=== PATIENT | female | born 1970 | race Caucasian/White ===

== ENCOUNTER 2019-02-15 07:48 | Inpatient (IN) | payer BC, OTHER ==
--- NOTE | 2019-02-15 08:43 | PDOC ---
History of Present Illness - General Chief Complaint: Pain, Acute Stated Complaint: NECK PAIN/RIB CAGE PAIN Time Seen by Provider: 02/15/19 08:09 Past History - Past Medical History Allergies/Adverse Reactions: Allergies Allergy/AdvReac Type Severity Reaction Status Date / Time No Known Allergies Allergy Verified 02/15/19 08:02 Home Medications: Ambulatory Orders NK [No Known Home Medication] 02/15/19 CVA: No COPD: No - Surgical History Cardiac Surgery: No GI Surgery: No - Immunization History Immunization Up to Date: No - Psycho Social/Smoking Cessation Hx Smoking History: Never smoked Have you smoked in the past 12 months: No Information on smoking cessation initiated: No Hx Alcohol Use: No Drug/Substance Use Hx: No *Physical Exam - Vital Signs Last Vital Signs Temp Pulse Resp BP Pulse Ox 98.1 F 94 H 16 114/74 98 02/15/19 07:59 02/15/19 07:59 02/15/19 07:59 02/15/19 07:59 02/15/19 07:59 ED Treatment Course - LABORATORY CBC & Chemistry Diagram: 02/15/19 08:55 02/15/19 08:55 Medical Decision Making - Medical Decision Making 02/15/19 08:54 HPI: 48yo F no PMH on OCPs presents from home with atraumatic L anterolateral rib/ chest/lung and L neck pain. pleuritic, worse with lying flat or exertion or deep breath/cough/yawn, associated with SOB, acute onset at rest while watching TV 02/09/18 PM, shooting type, constant, worsening, unimproved with advil (last took 4 advils at 0530 today). Of note, recent URI/cold (cough, rhinorrhea, congestion) resolved 1.5 weeks ago. LMP 01/19/19, irregular. Denies hx DVT/PE, hemoptysis, recent trauma/surgery/travel, immobilization, calf pain, leg swelling, fever, chills, fatigue, headache, dizziness, numbness/tingling, weakness, vision changes, cough, palpitations, abdominal pain, blood in stool, diarrhea, constipation, nausea, vomiting, dysuria, hematuria, confusion. ROS: Constitutional: Negative for chills, fever, fatigue, diaphoresis. HENT: Negative for sore throat, rhinorrhea, congestion. Eyes: Negative for visual disturbance. Respiratory: Positive for shortness of breath and L chest/rib/lung pain. Negative for cough, and wheezing. Cardiovascular: Positive for L chest/rib/lung pain. Negative for palpitations, and leg swelling. Gastrointestinal: Negative for abdominal pain, blood in stool, constipation, diarrhea, nausea, and vomiting. Genitourinary: Negative for dysuria, flank pain, and hematuria. Musculoskeletal: Positive for L-sided neck pain. Negative for myalgias, back pain. Skin: Negative for rash. Neurological: Negative for light-headedness, dizziness, vertigo, syncope, weakness, numbness and headaches. Psychiatric/Behavioral: Negative for behavioral problems and confusion. PE: Gen: Alert, NAD, comfortable-appearing. HEENT: PERRL, EOMI, MMM, NCAT. No conjunctival pallor. Sclera are non-icteric. Oropharynx is clear. CV: Regular rate and rhythm. No murmurs, rubs, or gallops. +point TTP L anterolateral rib just inferior to L breast. PULM: No resp distress. CTAB, no wheezes, rales, or rhonchi. ABD: soft, NT/ND, no rebound tenderness or guarding, no CVA tenderness. BACK: No TTP of c/t/l-spine. No step-offs or deformities. MSK: No bony deformities. 2+ pulses in all extremities. NEURO: AAOx3. PERRL. No gross CN deficits. Strength and sensation grossly intact throughout. EXTREMITIES: No cyanosis. No clubbing. No edema. No calf tenderness. PSYCH: Normal mood and thought pattern. SKIN: Warm and dry. Normal capillary refill. No rashes. No jaundice. MDM: 48yo F no PMH on OCPs presents from home with atraumatic L anterolateral rib/ chest/lung and L neck pain. pleuritic, worse with lying flat or exertion or deep breath/cough/yawn, associated with SOB, acute onset at rest while watching TV 02/09/18 PM, shooting type, constant, worsening, unimproved with advil (last took 4 advils at 0530 today). Of note, recent URI/cold (cough, rhinorrhea, congestion) resolved 1.5 weeks ago. Ddx: PE (OCP use, no other RFs), killian/myocarditis, PNA, ACS/ID (no RFs), rib fx (no trauma), costochondritis, anemia, metabolic derangement -EKG reviewed: NSR, 88bpm, normal intervals, normal axis, no TWIs, no ST elevations or depressions -CXR -CBC,CMP,D-dimer,Mg,Phos,HCG -Tylenol for pain -Dispo: pending w/u 02/15/19 10:45 CXR reviewed: L base atelectasis or infiltrate with fluid. Intact ribs. Correlation recommended. Follow-up imaging needed. Labs reviewed. CTPE for elevated d-dimer 02/15/19 12:01 CTPE positive for b/l PEs, b/l lower lobes, subsegmental. -Coags -Lovenox 70mg BID (1mg/kg) -duplex BLEs -Admit 02/15/19 12:[address] Bellamy, admitting team. Discharge - Discharge Information Problems reviewed: Yes Clinical Impression/Diagnosis: Pulmonary embolism, bilateral Condition: Stable - Admission Yes - Follow up/Referral Referrals: ON STAFF,NOT [Primary Care Provider] - - Patient Discharge Instructions - Post Discharge Activity
[2019-02-15] MEDS ORDERED: ACETAMINOPHEN 1000 MG/100 ML VIAL (NON FORMULARY) IVPB ONE (08:52)
[2019-02-15] MEDS ORDERED: LIDOCAINE 5% TOPICAL PATCH TP ONE (08:54)
[2019-02-15] MEDS ORDERED: ACETAMINOPHEN INJECTION 100 ML IVPB ONE (08:58)
[2019-02-15] MEDS ORDERED: LIDOCAINE 5% TOPICAL PATCH ONE (08:58)
[2019-02-15 09:27] LABS: BASO % 0.7 % (0-2.0); EOS % 0.8 % (0-4.5); HEMATOCRIT 29.1 % (32.4-45.2); HEMOGLOBIN 9.4 GM/dL (10.7-15.3); LYMPH % 8.1 % (8-40); MCH 26.8 pg (25.7-33.7); MCHC 32.4 g/dl (32.0-36.0); MEAN CELL VOLUME 82.9 fl (80-96); MEAN PLT VOLUME 8.7 fl (7.5-11.1); NEUT % 83.4 % (42.8-82.8); PLATELET COUNT 391 K/MM3 (134-434); RBC 3.52 M/mm3 (3.60-5.2); RDW 15.4 % (11.6-15.6); WHITE BLOOD COUNT 9.4 K/mm3 (4.0-10.0)
[2019-02-15 09:55] LABS: ALBUMIN 2.8 g/dl (3.4-5.0); BILIRUBIN,TOTAL 0.2 mg/dL (0.2-1); CALCIUM 8.6 mg/dL (8.5-10.1); CREATININE 0.7 mg/dL (0.55-1.3); MAGNESIUM 2.1 mg/dL (1.8-2.4); N-TERMINAL BNP 34.7 pg/ml (5-125); PHOSPHOROUS 2.5 mg/dL (2.5-4.9); POTASSIUM 4.3 mmol/L (3.5-5.1); TOT PROT 6.9 g/dl (6.4-8.2)
[2019-02-15] MEDS ORDERED: ENOXAPARIN NA (PORCINE) 80 MG/0.8 ML DISP.SYRIN SQ ONE (12:29)
[2019-02-15] MEDS ORDERED: ENOXAPARIN NA (PORCINE) 60 MG/0.6 ML DISP.SYRIN SQ SCH (12:30)
[2019-02-15] MEDS: ENOXAPARIN NA (PORCINE) 60 MG/0.6 ML DISP.SYRIN SQ SCH ×2 (12:42→21:25)
[2019-02-15 12:45] LABS: INR 1.04 (0.83-1.09); PROTHROMBIN TIME (PATIENT) 12.3 SEC (9.7-13.0)
[2019-02-15 12:47] LABS: ACTIVATED PTT 25.8 SECONDS (25.2-36.5)
--- NOTE | 2019-02-15 15:08 | EKG ---
Test Reason : Blood Pressure : / mmHG Vent. Rate : 088 BPM Atrial Rate : 088 BPM P-R Int : 138 ms QRS Dur : 092 ms QT Int : 370 ms P-R-T Axes : 048 060 046 degrees QTc Int : 447 ms NORMAL SINUS RHYTHM NORMAL ECG NO PREVIOUS ECGS AVAILABLE Confirmed by ARMANDO DOE MD ([id number]) on 02/15/2019 3:07:52 PM Referred By: Confirmed By:ARMANDO DOE MD
[2019-02-15 15:22] LABS: BASO % 0.7 % (0-2.0); HEMATOCRIT 30.1 % (32.4-45.2); HEMOGLOBIN 9.5 GM/dL (10.7-15.3); LYMPH % 10.6 % (8-40); MCH 26.6 pg (25.7-33.7); MCHC 31.7 g/dl (32.0-36.0); MEAN CELL VOLUME 83.9 fl (80-96); MONO % 4.8 % (3.8-10.2); NEUT % 82.9 % (42.8-82.8); PLATELET COUNT 392 K/MM3 (134-434); RBC 3.59 M/mm3 (3.60-5.2); RDW 15.4 % (11.6-15.6)
[2019-02-15] MEDS ORDERED: ACETAMINOPHEN 325 MG TABLET (FP) ONE (15:55)
[2019-02-15] MEDS: ACETAMINOPHEN 325 MG TABLET (FP) PO PRN ×2 (15:59→22:39)
--- NOTE | 2019-02-15 18:18 | HP ---
CHIEF COMPLAINT: Chest pain on the left side more in the right side small amount. PCP: No medical doctor but has a business development assistant HISTORY OF PRESENT ILLNESS: This is a 48 years old female who came to the ER with complaining of chest pain on the left side more and the right side slightly less is been going on for few days pain is increased when she lie flat or exertion or deep breath coughing and yawning. It is also associated with the shortness of breath and also when she do some any extra activity pain has been worsened by any activity which she does including coughing or worsening by the scooping over hour. Pain is pretty sharp and she denies any other symptom. For the last 5 years she has been having regular. And her business development assistant has started her on control pill which she is taking it. There is no family history of any blood clots in the family. Review of system is negative for any nausea vomiting blurry vision stroke or palpitation abdominal pain stool or diarrhea or history of stroke in the past. ER course was notable for: Positive for pulmonary embolism in the lungs on the CT angios and negative for DVT in the legs (1) (2) (3) Recent Travel: PAST MEDICAL HISTORY: No past medical history PAST SURGICAL HISTORY: No past surgical history Social History: Smoking: Any smoking alcohol or drug use Alcohol: Drugs: Allergies No Known Allergies Allergy (Verified 02/15/19 08:02) HOME MEDICATIONS: Home Medications Medication Instructions Recorded NK [No Known Home Medication] 02/15/19 REVIEW OF SYSTEMS Constitutional: Negative for chills, fever, fatigue, diaphoresis. HENT: Negative for sore throat, rhinorrhea, congestion. Eyes: Negative for visual disturbance. Respiratory: Positive for shortness of breath and L chest/rib/lung pain. Negative for cough, and wheezing. Cardiovascular: Positive for L chest/rib/lung pain. Negative for palpitations, and leg swelling. Gastrointestinal: Negative for abdominal pain, blood in stool, constipation, diarrhea, nausea, and vomiting. Genitourinary: Negative for dysuria, flank pain, and hematuria. Musculoskeletal: Positive for L-sided neck pain. Negative for myalgias, back pain. Skin: Negative for rash. Neurological: Negative for light-headedness, dizziness, vertigo, syncope, weakness, numbness and headaches. Psychiatric/Behavioral: Negative for behavioral problems and confusion. PHYSICAL EXAMINATION Vital Signs - 24 hr 02/15/19 02/15/19 02/15/19 07:59 09:06 12:31 Temperature 98.1 F Pulse Rate 94 H Pulse Rate [ 84 Apical] Respiratory 16 18 Rate Blood Pressure 114/74 Blood Pressure 115/79 [Right Arm] O2 Sat by Pulse 98 98 99 Oximetry (%) 02/15/19 02/15/19 13:32 17:07 Temperature Pulse Rate Pulse Rate [ 81 Apical] Respiratory 18 Rate Blood Pressure Blood Pressure 128/77 [Right Arm] O2 Sat by Pulse 99 98 Oximetry (%) GENERAL: Awake, alert, and fully oriented, in no acute distress. HEAD: Normal with no signs of trauma. EYES: Pupils equal, round and reactive to light, extraocular movements intact, sclera anicteric, conjunctiva clear. No lid lag. EARS, NOSE, THROAT: Ears normal, nares patent, oropharynx clear without exudates. Moist mucous membranes. NECK: Normal range of motion, supple without lymphadenopathy, JVD, or masses. LUNGS: Breath sounds equal, clear to auscultation bilaterally. No wheezes, and no crackles. No accessory muscle use. HEART: Regular rate and rhythm, normal S1 and S2 without murmur, rub or gallop. ABDOMEN: Soft, nontender, not distended, normoactive bowel sounds, no guarding, no rebound, no masses. No hepatomegaly or splenomegaly. MUSCULOSKELETAL: Normal range of motion at all joints. No bony deformities or tenderness. No CVA tenderness. UPPER EXTREMITIES: 2+ pulses, warm, well-perfused. No cyanosis. No clubbing. No peripheral edema. LOWER EXTREMITIES: 2+ pulses, warm, well-perfused. No calf tenderness. No peripheral edema. NEUROLOGICAL: Cranial nerves II-XII intact. Normal speech. Normal gait. PSYCHIATRIC: Cooperative. Good eye contact. Appropriate mood and affect. SKIN: Warm, dry, normal turgor, no rashes or lesions noted, normal capillary refill. Laboratory Results - last 24 hr 02/15/19 02/15/19 02/15/19 08:55 08:55 08:55 WBC 9.4 RBC 3.52 L Hgb 9.4 L Hct 29.1 L MCV 82.9 MCH 26.8 MCHC 32.4 RDW 15.4 Plt Count 391 MPV 8.7 Absolute Neuts (auto) 7.8 Neutrophils % 83.4 H Lymphocytes % 8.1 Monocytes % 7.0 Eosinophils % 0.8 Basophils % 0.7 Nucleated RBC % 0 PT with INR INR PTT (Actin FS) D-Dimer 4302 H Sodium Potassium Chloride Carbon Dioxide Anion Gap BUN Creatinine Est GFR (CKD-EPI)AfAm Est GFR (CKD-EPI)NonAf Random Glucose Calcium Phosphorus Magnesium Total Bilirubin AST ALT Alkaline Phosphatase Creatine Kinase 30 Troponin I < 0.02 B-Natriuretic Peptide Total Protein Albumin Vitamin B12 Serum Folate Beta HCG, Quant 02/15/19 02/15/19 02/15/19 08:55 08:55 14:38 WBC 10.0 RBC 3.59 L Hgb 9.5 L Hct 30.1 L MCV 83.9 MCH 26.6 MCHC 31.7 L RDW 15.4 Plt Count 392 MPV 9.0 Absolute Neuts (auto) 8.3 H Neutrophils % 82.9 H Lymphocytes % 10.6 D Monocytes % 4.8 Eosinophils % 1.0 Basophils % 0.7 Nucleated RBC % 0 PT with INR 12.30 INR 1.04 PTT (Actin FS) 25.8 D-Dimer Sodium 137 Potassium 4.3 Chloride 105 Carbon Dioxide 25 Anion Gap 7 L BUN 12.0 Creatinine 0.7 Est GFR (CKD-EPI)AfAm 117.09 Est GFR (CKD-EPI)NonAf 101.02 Random Glucose 79 Calcium 8.6 Phosphorus 2.5 Magnesium 2.1 Total Bilirubin 0.2 AST 13 L ALT 24 Alkaline Phosphatase 52 Creatine Kinase Troponin I B-Natriuretic Peptide 34.7 Total Protein 6.9 Albumin 2.8 L Vitamin B12 Serum Folate Beta HCG, Quant 1.4 02/15/19 15:54 WBC RBC Hgb Hct MCV MCH MCHC RDW Plt Count MPV Absolute Neuts (auto) Neutrophils % Lymphocytes % Monocytes % Eosinophils % Basophils % Nucleated RBC % PT with INR INR PTT (Actin FS) D-Dimer Sodium Potassium Chloride Carbon Dioxide Anion Gap BUN Creatinine Est GFR (CKD-EPI)AfAm Est GFR (CKD-EPI)NonAf Random Glucose Calcium Phosphorus Magnesium Total Bilirubin AST ALT Alkaline Phosphatase Creatine Kinase Troponin I B-Natriuretic Peptide Total Protein Albumin Vitamin B12 286 Serum Folate 7 Beta HCG, Quant Her EKG shows she is normal sinus rhythm with 88 bpm and normal axis no ST-T wave depression. Chest x-ray shows possible atelectasis or fluid that leads to chest CAT scan and the results as CT chest shows. Bilateral acute pulmonary emboli small left pleural effusion with small left lower lobe consolidation ASSESSMENT/PLAN: 48 years old female with no past medical history admitted for acute pulmonary embolism. Her leg sonogram is negative for any DVT. So she is 69 kg at this time so we will start her on Lovenox 70 mg subcu twice daily. Will watch her on telemetry and will get an echocardiogram to look for any heart rate strain on her. We will give her 2 L oxygen and She is also have anemia which is normocytic and she has denies any sign of bleeding so we will do basic anemia work-up which is stool guaiac B12 folic acid and iron studies and will follow she has no old CBC available in the hospital and she does not remember her hemoglobin level in the past. Tomorrow she can go on oral anticoagulant. Visit type - Emergency Visit Emergency Visit: Yes ED Registration Date: 02/15/19 Care time: The patient presented to the Emergency Department on the above date and was hospitalized for further evaluation of their emergent condition. - New Patient This patient is new to me today: Yes Date on this admission: 02/15/19 - Critical Care Critical Care patient: No
[2019-02-15 18:31] VITALS: BMI 24.2
[2019-02-16] MEDS: ENOXAPARIN NA (PORCINE) 60 MG/0.6 ML DISP.SYRIN SQ SCH ×2 (10:29→21:04)
--- NOTE | 2019-02-16 13:29 | PN ---
Progress Note, Physician Chief Complaint: sob History of Present Illness: seen and examined at bedside. feeling much better. less AMADOR, less plueritic cp - Current Medication List Current Medications: Active Medications Acetaminophen (Tylenol -) 650 mg PO Q6H PRN PRN Reason: PAIN Last Admin: 02/15/19 22:39 Dose: 650 mg Enoxaparin Sodium (Lovenox -) 70 mg SQ BID HARRIETT Last Admin: 02/16/19 10:29 Dose: 70 mg - Objective Vital Signs: Vital Signs Temperature 97.9 F 02/16/19 13:06 Pulse Rate 90 02/16/19 13:06 Respiratory Rate 18 02/16/19 13:06 Blood Pressure 129/76 02/16/19 13:06 O2 Sat by Pulse Oximetry (%) 100 02/16/19 09:00 Constitutional: Yes: Well Nourished, No Distress, Calm HENT: Yes: WNL, Atraumatic, Normocephalic Neck: Yes: WNL, Supple, Trachea Midline Cardiovascular: Yes: WNL, Regular Rate and Rhythm Respiratory: Yes: WNL, Regular, CTA Bilaterally Gastrointestinal: Yes: WNL, Normal Bowel Sounds, Soft Musculoskeletal: Yes: WNL Extremities: Yes: WNL Edema: No Labs: CBC, BMP 02/15/19 14:38 02/15/19 08:55 INR, PTT INR 1.04 (0.83-1.09) 02/15/19 08:55 Problem List - Problems (1) Pulmonary embolism, bilateral Code(s): I26.99 - OTHER PULMONARY EMBOLISM WITHOUT ACUTE COR PULMONALE Assessment/Plan ASSESSMENT/PLAN: 48 year old female on OCP with no past medical history admitted for acute pulmonary embolism. 1) Acute bilateral PE -likely due to OCP use -no DVT -on levonox BID -2decho in AM -transition to PO AC in AM, eliquis -needs fu chest imaging, lll consolidation seen no clinical s/s pna
[2019-02-16 16:13] LABS: IRON SERUM 12 ug/dL (50-175); TOTAL IRON BINDING CAPACITY 293 ug/dL (250-450)
[2019-02-16] MEDS: ACETAMINOPHEN 325 MG TABLET (FP) PO PRN (21:05)
[2019-02-17 06:10] VITALS: TEMP 98.2
--- NOTE | 2019-02-17 09:44 | PN ---
Physical Exam: SUBJECTIVE: Patient seen and examined. She complains of left back pain when she coughs and takes a deep breath. OBJECTIVE: Vital Signs Period Temp Pulse Resp BP Sys/Bui Pulse Ox Last 24 Hr 97.6 F-98.6 F 69-102 16-18 111-133/66-84 98 GENERAL: The patient is awake, alert, and fully oriented, in no acute distress. HEAD: Normal with no signs of trauma. EYES: PERRL, extraocular movements intact, sclera anicteric, conjunctiva clear. No ptosis. ENT: Ears normal, nares patent, oropharynx clear without exudates, moist mucous membranes. NECK: Trachea midline, full range of motion, supple. LUNGS: Breath sounds equal, clear to auscultation bilaterally, no wheezes, no crackles, no accessory muscle use. HEART: Regular rate and rhythm, S1, S2 without murmur, rub or gallop. ABDOMEN: Soft, nontender, nondistended, normoactive bowel sounds, no guarding, no rebound, no hepatosplenomegaly, no masses. EXTREMITIES: 2+ pulses, warm, well-perfused, no edema. NEUROLOGICAL: Cranial nerves II through XII grossly intact. Normal speech, gait not observed. PSYCH: Normal mood, normal affect. SKIN: Warm, dry, normal turgor, no rashes or lesions noted Laboratory Results - last 24 hr 02/16/19 02/16/19 15:41 15:41 Iron 12 L TIBC 293 Iron Saturation 4 L Unsaturated IBC 281 H Ferritin 36.7 Active Medications Generic Name Dose Route Start Last Admin Trade Name Freq PRN Reason Stop Dose Admin Acetaminophen 650 mg 02/15/19 13:08 02/16/19 21:05 Tylenol - PO 650 mg Q6H PRN Administration PAIN Enoxaparin Sodium 70 mg 02/15/19 12:30 02/16/19 21:04 Lovenox - SQ 70 mg BID HARRIETT Administration ASSESSMENT/PLAN:
[2019-02-17] MEDS: ENOXAPARIN NA (PORCINE) 60 MG/0.6 ML DISP.SYRIN SQ SCH (09:53)
--- NOTE | 2019-02-17 13:58 | CON.PULM ---
Consult Consult Specialty:: PULMONARY Referred by:: Dr Martinez Reason for Consultation:: PE - History of Present Illness Chief Complaint: back pain History of Present Illness: 48yo female with h/o uterine fibroids on oral contraceptives who was admitted with worsening left sided back pain. Reports sharp in nature, worse with deep inspiration and coughing. No fevers, chills or sweats. Found to have bilateral segmental pulmonary emboli on CTA chest. No personal or family history of VTE. 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 No recent leg pain/swelling/ trauma. She is a never smoker. Started taking the OCP about 6 months ago. She does report history of a miscarriage. LE dopplers negative for DVT. Family history positive for colon ca on both sides, she has had recent negative colonoscopy. - History Source History Provided By: Patient, Medical Record - Past Medical History Reproductive: Yes: Fibroids ...LMP: 01/19/19 ...: No - Alcohol/Substance Use Hx Alcohol Use: No - Smoking History Smoking history: Never smoked Have you smoked in the past 12 months: No Home Medications - Allergies Allergies/Adverse Reactions: Allergies Allergy/AdvReac Type Severity Reaction Status Date / Time No Known Allergies Allergy Verified 02/15/19 08:02 - Home Medications Home Medications: Ambulatory Orders NK [No Known Home Medication] 02/15/19 Review of Systems - Review of Systems Constitutional: denies: Chills, Fever, Night Sweats, Weakness Eyes: denies: Recent Change in Vision HENT: denies: Nasal Congestion, Throat Pain Neck: denies: Stiffness, Tenderness Cardiovascular: reports: Shortness of Breath. denies: Chest Pain Respiratory: denies: Cough, Hemoptysis, Wheezing Gastrointestinal: denies: Abdominal Pain, Nausea, Vomiting Genitourinary: denies: Dysuria, Hematuria Musculoskeletal: reports: Back Pain Neurological: denies: Dizziness, Headache Endocrine: denies: Unexplained Weight Loss Physical Exam Vital Sings: Vital Signs Temperature 98.2 F 02/17/19 09:50 Pulse Rate 94 H 02/17/19 09:50 Respiratory Rate 18 02/17/19 09:50 Blood Pressure 119/74 02/17/19 09:50 O2 Sat by Pulse Oximetry (%) 98 02/17/19 09:00 Constitutional: Yes: Calm Eyes: Yes: Conjunctiva Clear, EOM Intact HENT: Yes: Atraumatic, Normocephalic Neck: Yes: Supple, Trachea Midline Cardiovascular: Yes: Regular Rate and Rhythm Respiratory: Yes: Diminished (decreased breath sounds at the bases) ...Clubbing: No Gastrointestinal: Yes: Normal Bowel Sounds, Soft. No: Tenderness Edema: No Labs: CBC, BMP 02/15/19 14:38 02/15/19 08:55 Imaging - Results Chest X-ray: Report Reviewed, Image Reviewed Cat Scan: Report Reviewed, Image Reviewed (bilateral segmental PE, left basilar atelectasis, effusion) Problem List - Problems (1) Pulmonary embolism, bilateral Code(s): I26.99 - OTHER PULMONARY EMBOLISM WITHOUT ACUTE COR PULMONALE Assessment/Plan Acute Bilateral Pulmonary Emboli Left Atelectasis/Pleural Effusion Uterine Fibroids - continue anticoagulation - echocardiogram - if echocardiogram without evidence of right heart strain, can start eliquis 10mg BID x 7 days then 5mg BID - would anticoagulate for at least 6 months - CXR in 6-8 weeks to ensure resolution of effusion - age appropriate cancer screening as outpt Thank you for this consult Anthony Bishop MD
[2019-02-17 14:05] LABS: BASO % 0.8 % (0-2.0); EOS % 1.5 % (0-4.5); HEMATOCRIT 31.7 % (32.4-45.2); HEMOGLOBIN 10.3 GM/dL (10.7-15.3); LYMPH % 12.6 % (8-40); MCHC 32.6 g/dl (32.0-36.0); MEAN CELL VOLUME 82.9 fl (80-96); MEAN PLT VOLUME 8.5 fl (7.5-11.1); MONO % 5.3 % (3.8-10.2); NEUT % 79.8 % (42.8-82.8); PLATELET COUNT 442 K/MM3 (134-434); RBC 3.83 M/mm3 (3.60-5.2); RDW 15.1 % (11.6-15.6); WHITE BLOOD COUNT 8.7 K/mm3 (4.0-10.0)
[2019-02-17 14:06] VITALS: BP 121/74; PULSE 90
--- NOTE | 2019-02-17 15:26 | ECHO ---
Name: EVA GIRALDO Exam:Adult Echocardiogram Study Date: 02/17/2019 12:11 PM Age: 48 yrs Height: 65 in Weight: 145 lb BSA: 1.7 m2 MMode/2D Measurements & Calculations IVSd: 0.72 cm Ao root diam: 2.8 cm LVIDd: 4.3 cm LA dimension: 2.7 cm LVIDs: 2.9 cm LVPWd: 0.99 cm LVPWs: 1.3 cm EDV(Teich): 82.8 ml ESV(Teich): 31.1 ml LVOT diam: 1.7 cm RV S Orion: 13.8 cm/sec Doppler Measurements & Calculations MV E max orion: 62.7 cm/sec Ao V2 max: 139.8 cm/sec MV A max orion: 76.0 cm/sec Ao max P.8 mmHg MV E/A: 0.82 MV dec time: 0.13 sec SCARLET(V,D): 1.6 cm2 LV V1 max P.7 mmHg TR max orion: 214.5 cm/sec LV V1 max: 95.8 cm/sec TR max P.0 mmHg PA V2 max: 103.2 cm/sec Med Peak E' Orion: 8.5 cm/sec PA max P.3 mmHg Med E/e': 7.4 Lat Peak E' Orion: 12.0 cm/sec Lat E/e': 5.2 Procedure A complete two-dimensional transthoracic echocardiogram was performed (2D, M-mode, Doppler and color flow Doppler). Left Ventricle The left ventricle is normal in size. Left ventricular systolic function is normal. Ejection Fraction = 60- 65%. No regional wall motion abnormalities noted. Right Ventricle The right ventricle is normal size. The right ventricular systolic function is normal. Atria The left atrial size is normal. Right atrial size is normal. Mitral Valve There is mild mitral valve thickening. There is trace mitral regurgitation. Tricuspid Valve The tricuspid valve is normal in structure and function. There is mild tricuspid regurgitation. Pulmo nary artery systolic pressure is at least 29 mmHg if RA pressure is assumed 3 mmHg. Aortic Valve There is mild aortic sclerosis.;. No aortic regurgitation is present. Pulmonic Valve The pulmonic valve is not well visualized. Great Vessels The aortic root is normal size. Pericardium/Pleura There is no pericardial effusion. Interpretation Summary The left ventricle is normal in size. Left ventricular systolic function is normal. No regional wall motion abnormalities noted. Ejection Fraction = 60-65%. The right ventricular systolic function is normal. The left atrial size is normal. Right atrial size is normal. There is mild mitral valve thickening. There is trace mitral regurgitation. There is mild tricuspid regurgitation. Pulmonary artery systolic pressure is at least 29 mmHg if RA pressure is assumed 3 mmHg There is mild aortic sclerosis. There is no pericardial effusion. Brent Craven MD 02/17/2019 03:25 PM
[2019-02-17] MEDS ORDERED: APIXABAN 5 MG TABLET PO ONE (17:08)
--- NOTE | 2019-02-17 17:14 | DS ---
Physical Exam: SUBJECTIVE: Patient seen and examined. She still has pleuritic left back pain, but overall she feels better. She denies SOB. OBJECTIVE: Vital Signs Period Temp Pulse Resp BP Sys/Bui Pulse Ox Last 24 Hr 97.8 F-98.6 F 69-94 16-18 111-128/66-74 98-98 PHYSICAL EXAM GENERAL: The patient is awake, alert, and fully oriented, in no acute distress. HEAD: Normal with no signs of trauma. EYES: PERRL, extraocular movements intact, sclera anicteric, conjunctiva clear. ENT: Ears normal, nares patent, oropharynx clear without exudates, moist mucous membranes. NECK: Trachea midline, full range of motion, supple. LUNGS: Breath sounds equal, clear to auscultation bilaterally, no wheezes, no crackles, no accessory muscle use. HEART: Regular rate and rhythm, S1, S2 without murmur, rub or gallop. ABDOMEN: Soft, nontender, nondistended, normoactive bowel sounds, no guarding, no rebound, no hepatosplenomegaly, no masses. EXTREMITIES: 2+ pulses, warm, well-perfused, no edema. NEUROLOGICAL: Cranial nerves II through XII grossly intact. Normal speech, gait not observed. PSYCH: Normal mood, normal affect. SKIN: Warm, dry, normal turgor, no rashes or lesions noted. LABS Laboratory Results - last 24 hr 02/17/19 02/17/19 09:50 13:50 WBC 8.7 RBC 3.83 Hgb 10.3 L Hct 31.7 L MCV 82.9 MCH 27.0 MCHC 32.6 RDW 15.1 Plt Count 442 H MPV 8.5 Absolute Neuts (auto) 7.0 Neutrophils % 79.8 Lymphocytes % 12.6 Monocytes % 5.3 Eosinophils % 1.5 Basophils % 0.8 Nucleated RBC % 0 Stool Occult Blood Negative HOSPITAL COURSE: Date of Admission:02/15/19 Date of Discharge: 02/17/19 Minutes to complete discharge: 30 Discharge Summary Problems reviewed: Yes Reason For Visit: BILATERAL PULMONARY EMBOLISM Current Active Problems Pulmonary embolism, bilateral (Acute) Condition: Stable - Instructions Diet, Activity, Other Instructions: You were seen at the [facility] ER on February 15 for left sided chest pain with shortness of breath. CT scan showed acute blood clots in both lungs. You had an ultrasound of your legs which showed no clots. The clots were thought to be caused by your use of control pills. You were treated with a blood thinner by injection, Lovenox. You were seen by a lung specialist, Dr. Bishop. He recommended you take an oral blood thinner, Eliquis for at least 6 months. A prescription has been sent to [facility]. Ultrasound of your heart showed normal function. You were also found to have iron deficiency anemia , likely from your heavy periods. You should start taking an iron supplement. This may cause constipation, so you should also take a stool softener and drink plenty of water. You are being discharged home on February 17. Please schedule appointments with your primary care provider, Dr. Lamar Jones, and with the tanker service attendant, Dr. Anthony Bishop, within 1 week. If you have any further chest pain or shortness of breath, please return to the ER. Please take Eliquis as directed: Eliquis 5 mg 2 tablets twice daily x 7 days (Feb 18-) Eliquis 5 mg 1 tablet twice daily starting Feb 25 Referrals: Anthony Bishop MD, MD [Staff Physician] - 1 Week Disposition: HOME - Home Medications Comprehensive Discharge Medication List: Ambulatory Orders Apixaban [Eliquis -] 5 mg PO ASDIR #70 tablet 02/17/19 Docusate Sodium [Colace -] 100 mg PO BID #60 capsule 02/17/19 Ferrous Sulfate [Feosol] 325 mg PO BID #60 tablet 02/17/19
== END 2019-02-17 18:14 | disposition home or self-care (01) | DRG 176 ==
LOC: JER 07:48 → JERBED 12:08 → J4S 18:26
PROVIDERS: ADMIT Internal Medicine; ATTEND Internal Medicine
DX: I26.99 Other pulmonary embolism without acute cor pulmonale (principal); J98.11 Atelectasis; J90 Pleural effusion, not elsewhere classified; D64.9 Anemia, unspecified; D25.9 Leiomyoma of uterus, unspecified
CPT/HCPCS: 36415; 71046-TC-FY; 71275-TC; 80053; 82272; 82550; 82607; 82728; 82746; 83540; 83550; 83735; 83880; 84100; 84484; 84702; 85025; 85379; 85610; 85730; 93005; 93010; 93306-TC; 93970-TC; 99285-25; J0131; Q9967

== ENCOUNTER 2021-02-07 14:51 | Emergency (ER) | payer BC ==
[2021-02-07 15:01] VITALS: BMI 25.2
[2021-02-07] MEDS ORDERED: ACETAMINOPHEN 325 MG TABLET (FP) PO ONE (19:05)
[2021-02-07] MEDS ORDERED: ACETAMINOPHEN 325 MG TABLET (FP) ONE (19:36)
[2021-02-07 20:45] LABS: BASO % 0.7 % (0-2.0); EOS % 1.7 % (0-4.5); HEMATOCRIT 40.5 % (32.4-45.2); HEMOGLOBIN 13.2 GM/dL (10.7-15.3); LYMPH % 20.2 % (8-40); MCHC 32.6 g/dl (32.0-36.0); MEAN PLT VOLUME 9.3 fl (7.5-11.1); MONO % 6.7 % (3.8-10.2); NEUT % 70.7 % (42.8-82.8); PLATELET COUNT 253 10^3/uL (134-434); RBC 4.26 M/mm3 (3.60-5.2)
[2021-02-07 21:18] LABS: EPI CELLS 5 /uL (0-25.1); HYALINE CASTS 0 /uL (0-3.1); PH,URINE 5.5 (5.0-8.0); URINE APPEARANCE CLEAR; URINE BACTERIA 8776 /uL (0-1359); URINE BILIRUBIN NEGATIVE (NEGATIVE); URINE COLOR YELLOW; URINE GLUCOSE (UA) NEGATIVE (NEGATIVE); URINE KETONE 1+ (NEGATIVE); URINE LEUK ESTERASE NEGATIVE (NEGATIVE); URINE NITRITE POSITIVE (NEGATIVE); URINE PROTEIN NEGATIVE (NEGATIVE); URINE RBC 2 /uL (0-23.9); URINE UROBILINOGEN 0.2 mg/dL (0.2-1.0); URINE WBC 12 /uL (0-25.8)
[2021-02-07 21:25] LABS: ALBUMIN 3.5 g/dl (3.4-5.0); CALCIUM 8.9 mg/dL (8.5-10.1)
[2021-02-07 21:28] LABS: CREATININE 0.9 mg/dL (0.55-1.3)
[2021-02-07 21:30] LABS: BILIRUBIN,TOTAL 0.8 mg/dL (0.2-1); TOT PROT 7.5 g/dl (6.4-8.2)
[2021-02-07 23:09] VITALS: BP 125/76; PULSE 83; TEMP 98.1
== END 2021-02-07 23:10 | disposition home or self-care (01) ==
LOC: JER 14:51
DX: N80.8 Other endometriosis (principal); R10.31 Right lower quadrant pain; N30.00 Acute cystitis without hematuria
CPT/HCPCS: 36415; 74177-TC; 76830-TC; 80053; 81003; 84703; 85025; 87086; 87186; 99285-25; Q9967